=== PATIENT | male | born 1975 | race Caucasian/White ===

== ENCOUNTER → 2022-03-21 13:15 | Outpatient (BNVA) | payer OTHER, SELFPAY | PROVIDERS: PCP Nurse Practitioner; Visit Provider Internal Medicine | DX: R00.1 Bradycardia, unspecified (principal); I44.4 Left anterior fascicular block | CPT/HCPCS: 93005; 93225; 99204 ==

== ENCOUNTER → 2022-05-23 15:06 | Outpatient (BNVA) | payer OTHER, SELFPAY | PROVIDERS: PCP Nurse Practitioner; Visit Provider Internal Medicine | DX: R00.1 Bradycardia, unspecified (principal) | CPT/HCPCS: 99213; 99214 ==

== ENCOUNTER 2022-05-30 13:21 | Outpatient (CLI) | payer OTHER, SELFPAY ==
--- NOTE | 2022-05-30 13:00 | USCV_ITS ---
Vipul Randolph Age: 46 Gender: M : 1975 Exam Date: 05/30/2022 13:36 Ordering Phys: Jas Padilla M.D ([email or web address]) Technologist: Heike Rahman Exam Location: [facility] – [place] Indication: bradycardia BP: 128 / 78 HR: 42 Rhythm: Sinus/bradycardia Technical Quality: Good MEASUREMENTS (Male / Female) Normal Values 2D ECHO LV Diastolic Diameter PLAX 4.5 cm 4.2 - 5.9 / 3.9 - 5.3 cm LV Systolic Diameter PLAX 3.3 cm IVS Diastolic Thickness 1.1 cm 0.6 - 1.0 / 0.6 - 0.9 cm IVS Systolic Thickness 1.3 cm LVPW Diastolic Thickness 1.0 cm 0.6 - 1.0 / 0.6 - 0.9 cm LVPW Systolic Thickness 1.4 cm LVOT Diameter 2.2 cm LV Ejection Fraction 2D Teich 51.3 % LV Ejection Fraction MOD 2C 71.7 % LV Ejection Fraction 2C AL 72.2 % LA Diameter 3.0 cm LA Width 3.8 cm LA Height 4.8 cm RA Width 2.9 cm RA Height 5.0 cm Aorta at Sinotubular Diameter 3.4 cm IVC Diameter 1.9 cm M-MODE MV E Point Septal Separation 0.5 cm DOPPLER AV Peak Velocity 143.0 cm/s LVOT Peak Velocity 126.0 cm/s AV Area Cont Eq vti 3.5 cm squared AV Area Cont Eq pk 3.3 cm squared MV Peak Velocity 93.0 cm/s MV Area PHT 3.2 cm squared Mitral E to A Ratio 1.4 MV E' Velocity 45.5 cm/s Mitral E to MV E' Ratio 5.7 Mitral E to LV E' Lateral Ratio 4.4 Mitral E to LV E' Septal Ratio 8.1 TR Peak Velocity 139.3 cm/s TR Peak Gradient 7.8 mmHg Right Atrial Pressure 3.0 mmHg Pulmonary Artery Systolic Pressu 10.8 mmHg RV Acceleration Time 0.2 s RV Ejection Time 0.4 s RV AcT/ET 0.4 FINDINGS Left Ventricle Left ventricle is normal in size. LV systolic function is normal with EF of 55 to 60%. No regional wall motion abnormalities are seen. Diastolic function is normal Right Ventricle RV is normal in size and function Right Atrium Normal in size. Interatrial septum is aneurysmal. Left Atrium Normal in size Mitral Valve Mitral valve is structurally normal. Mild mitral regurgitation. No significant stenosis Aortic Valve Structurally normal aortic valve. There is no significant stenosis or regurgitation. Tricuspid Valve Trace tricuspid regurgitation. Pulmonary artery systolic pressure is normal. Pulmonic Valve Grossly normal Pericardium Normal Aorta Normal in size IVC CONCLUSIONS LV systolic function is normal with EF of 55 to 60%. Mild mitral regurgitation Trace tricuspid regurgitation Interatrial septum is aneurysmal. No comparison studies are available Jas Padilla MD (Electronically Signed) Final Date: 08 June 2022 12:10 S
== END 2022-05-30 13:22 | disposition home or self-care (01) ==
LOC: RAD 13:26
PROVIDERS: PCP Nurse Practitioner; Visit Provider Internal Medicine
DX: R00.1 Bradycardia, unspecified (principal); I08.1 Rheumatic disorders of both mitral and tricuspid valves
CPT/HCPCS: 93306

== ENCOUNTER → 2023-08-19 14:03 | Outpatient (BNVA) | payer OTHER, SELFPAY | PROVIDERS: PCP Nurse Practitioner; Visit Provider Nurse Practitioner Family | DX: B36.0 Pityriasis versicolor (principal); D22.5 Melanocytic nevi of trunk; L81.4 Other melanin hyperpigmentation; L57.8 Other skin changes due to chronic exposure to nonionizing radiation | CPT/HCPCS: 99214 ==

== ENCOUNTER → 2023-09-17 14:30 | Outpatient (BNVA) | payer OTHER, SELFPAY | PROVIDERS: PCP Nurse Practitioner; Visit Provider Internal Medicine | DX: R00.1 Bradycardia, unspecified (principal) | CPT/HCPCS: 99213 ==

== ENCOUNTER → 2024-11-08 08:56 | Outpatient (BNVA) | payer OTHER, SELFPAY | PROVIDERS: PCP Nurse Practitioner; Visit Provider Nurse Practitioner Family | DX: L81.7 Pigmented purpuric dermatosis (principal); B36.0 Pityriasis versicolor; D22.5 Melanocytic nevi of trunk; L81.4 Other melanin hyperpigmentation; L57.8 Other skin changes due to chronic exposure to nonionizing radiation | CPT/HCPCS: 99214 ==